=== PATIENT | female | born 1990 | race Caucasian/White ===

== ENCOUNTER 2021-02-15 14:06 | Emergency (ER) | payer OTHER ==
[2021-02-15] MEDS ORDERED: DEXAMETHASONE LIQUID 0.5 MG/5 ML PO ONE (14:16)
[2021-02-15 14:22] VITALS: BP 118/82; PULSE 90; TEMP 98.2; BMI 41.8
[2021-02-15] MEDS ORDERED: DEXAMETHASONE SOD PHOSPHATE 10 MG/1 ML VIAL ONE (14:50)
== END 2021-02-15 15:34 | disposition home or self-care (01) ==
LOC: JERFT 14:06 → JER 14:06 → JERFT 15:34
DX: J02.9 Acute pharyngitis, unspecified (principal)
CPT/HCPCS: 87880; 99283-25; C9803; U0003; U0005